=== PATIENT | male | born 1960 | race African-American/Black ===

== ENCOUNTER 2018-01-02 23:00 | Emergency (ER) | payer SELFPAY ==
[~2018-01-02] VITALS: Ht 180.3 cm; Wt 104.0 kg
[2018-01-03 02:02] LABS: CHLORIDE 108 mEq/L (98-107)
[2018-01-03 02:10] LABS: BASOPHILS % 0.3 % (0.0-2.0); EOSINOPHILS % 1.4 % (0.0-5.0); ETHANOL BLOOD 293 mg/dL; HEMOGLOBIN. 12.9 g/dL (14.0-18.0); LYMPHOCYTES % 28.7 % (20.0-50.0); MEAN CORPUSCULAR HEMOGLOBIN 31.5 pg (28.0-32.0); MEAN CORPUSCULAR VOLUME 93.2 fL (80.0-94.0); MEAN PLATELET VOLUME 9.6 fl (7.4-10.4); MONOCYTES % 10.8 % (2.0-8.0); NEUTROPHILS % 58.8 % (40.0-76.0); PLATELET 179 x1000/uL (130-400); RED BLOOD CELL COUNT 4.07 mill/uL (4.7-6.1); RED CELL DISTRIBUTION WIDTH 14.9 % (11.6-14.6)
[2018-01-03 07:30] VITALS: BP 115/56
== END 2018-01-03 07:30 | disposition home or self-care (01) ==
LOC: ER 23:07
DX: F10.129 Alcohol abuse with intoxication, unspecified (principal); I10 Essential (primary) hypertension; R51 Headache; Y90.8 Blood alcohol level of 240 mg/100 ml or more
CPT/HCPCS: 36415; 80053; 80307; 80329; 85025; 99285; G0482; Z7610

== ENCOUNTER 2018-01-06 13:01 | Emergency (ER) | payer OTHER ==
[~2018-01-06] VITALS: Ht 180.3 cm; Wt 110.0 kg
[2018-01-06] MEDS ORDERED: FOLIC ACID 1 MG, THIAMINE HCL 100 MG, MVI, ADULT NO.1 10 ML in DEXTROSE 5% WATER 1,000 ML IV ONE ×4 (14:15)
[2018-01-06 14:43] LABS: BASOPHILS % 0.5 % (0.0-2.0); EOSINOPHILS % 1.9 % (0.0-5.0); HEMATOCRIT. 37.3 % (42.0-52.0); HEMOGLOBIN. 12.2 g/dL (14.0-18.0); LYMPHOCYTES % 29.4 % (20.0-50.0); MEAN CORPUSCULAR HEMOGLOBIN 30.6 pg (28.0-32.0); MEAN CORPUSCULAR VOLUME 93.5 fL (80.0-94.0); MEAN PLATELET VOLUME 9.4 fl (7.4-10.4); MONOCYTES % 6.8 % (2.0-8.0); NEUTROPHILS % 61.4 % (40.0-76.0); PLATELET 217 x1000/uL (130-400); RED BLOOD CELL COUNT 3.99 mill/uL (4.7-6.1); RED CELL DISTRIBUTION WIDTH 14.6 % (11.6-14.6)
[2018-01-06 14:57] LABS: CHLORIDE 111 mEq/L (98-107)
[2018-01-06 15:02] LABS: ETHANOL BLOOD 326 mg/dL
[2018-01-06 19:36] LABS: CLARITY URINE CLEAR (CLEAR); COLOR URINE YELLOW (YELLOW); KETONES URINE NEGATIVE (NEGATIVE); LEUKOCYTE ESTERASE URINE NEGATIVE (NEGATIVE); NITRITE URINE NEGATIVE (NEGATIVE); OCCULT BLOOD URINE NEGATIVE (NEGATIVE); PROTEIN URINE NEGATIVE (NEGATIVE); SPECIFIC GRAVITY URINE 1.011 (1.005-1.030); UROBILINOGEN URINE 0.2 E.U./dL (0.2-1.0)
[2018-01-06 19:49] LABS: *AMPHETAMINES SCREEN URINE PRESUMTIVE POSITIVE (NEGATIVE); *BARBITURATES SCREEN URINE NEGATIVE (NEGATIVE); *BENZODIAZEPINES SCREEN URINE NEGATIVE (NEGATIVE); *COCAINE SCREEN URINE NEGATIVE (NEGATIVE); CANNABINOID URINE SCREEN NEGATIVE (NEGATIVE); METHADONE URINE SCREEN NEGATIVE (NEGATIVE); OPIATES URINE SCREEN NEGATIVE (NEGATIVE); PHENCYCLIDINE URINE SCREEN NEGATIVE (NEGATIVE)
[2018-01-07] MEDS ORDERED: LORAZEPAM 1MG TABLET PO ONE (04:00)
[2018-01-07] MEDS ORDERED: LORA2TAB2 PO (04:01)
[2018-01-07] MEDS ORDERED: TRAZ-129 PO (04:01)
[2018-01-07] MEDS ORDERED: HYDR50TA54 PO (04:01)
[2018-01-07] MEDS ORDERED: DOC Q LACE (04:01)
[2018-01-07] MEDS ORDERED: DIPH25CA83 PO (04:06)
[2018-01-07] MEDS ORDERED: QUET25TA PO (04:06)
[2018-01-07] MEDS ORDERED: AMLO10TA4 PO (04:06)
[2018-01-07] MEDS ORDERED: BUPR100T6 PO (04:06)
[2018-01-07] MEDS ORDERED: CLONAZEPAM 1MG TABLET PO ONE (14:15)
[2018-01-07 15:08] VITALS: BP 139/66
== END 2018-01-07 15:11 | disposition home or self-care (01) ==
LOC: ER 13:08
DX: T51.0X1A Toxic effect of ethanol, accidental (unintentional), initial encounter (principal); G92 Toxic encephalopathy; F10.129 Alcohol abuse with intoxication, unspecified; Y92.89 Other specified places as the place of occurrence of the external cause; I10 Essential (primary) hypertension; E66.9 Obesity, unspecified; Z68.39 Body mass index [BMI] 39.0-39.9, adult
CPT/HCPCS: 36415; 70450; 80048; 80305; 80307; 80329; 81003; 85025; 96365; 96366; 99285; G0482; J3411; J3490; J7070; Z7610